=== PATIENT | female | born 1980 | race Caucasian/White ===

== ENCOUNTER 2016-03-31 23:16 | Outpatient (CLI) | payer OTHER, MEDICAID ==
[2016-03-31 23:59] LABS: APPEARANCE,URINE SLIGHTLY-CLOUDY; BILIRUBIN,URINE NEGATIVE (NEGATIVE); GLUCOSE, URINE NEGATIVE (NEGATIVE); KETONES,URINE NEGATIVE (NEGATIVE); LEUKOCYTE ESTERASE,URINE TRACE (NEGATIVE); NITRITE,URINE NEGATIVE (NEGATIVE); PROTEIN,URINE NEGATIVE (NEGATIVE); URINE SPECIFIC GRAVITY 1.026; UROBILINOGEN,URINE NEGATIVE mg/dL (<2.0)
[2016-04-01 00:17] LABS: URINE BARBITURATES SCREEN NEGATIVE; URINE METHADONE SCREEN NEGATIVE; URINE OPIATES LOW NEGATIVE; URINE PHENCYCLIDINE SCREEN NEGATIVE
--- NOTE | 2016-04-01 04:45 | Antepartum Discharge Summary ---
Antepartum DC Datetime Report Generated by CPN: 04/01/2016 04:45 DIET/ACTIVITY/RESTRICTIONS Diet: Regular (04/01/2016 02:53:Mili Calzada, RN) Activity: Normal Activity (04/01/2016 02:53:Mili Calzada, RN) TEACHING/INSTRUCTIONS/REFERRALS Instructions Given To: Patient (04/01/2016 02:53:Mili Calzada, RN) Instructions Understood: Patient Verbalized Understanding (04/01/2016 02:53:Mili Calzada, RN) Referrals: None (04/01/2016 02:53:Mili Calzada RN) Educational Materials- Other: kick counts and labor (04/01/2016 02:53:Mili Calzada RN) DISCHARGE INFORMATION Discharged AMA: No (04/01/2016 02:53:Mili Calzada RN) Discharge Date/Time: 04/01/2016 01:18 (04/01/2016 02:53:Mili Calzada RN) Discharged To: Home (04/01/2016 02:53:Mili Calzada RN) Discharge Provider Name: Dr Quach (04/01/2016 02:53:Mili Calzada RN) Accompanied By: Self (04/01/2016 02:53:Mili Calzada RN) Discharge Method: Ambulatory (04/01/2016 02:53:Mili Calzada RN) Condition: Stable (04/01/2016 02:53:Mili Calzada RN) FOLLOW UP INFORMATION Follow Up With: [facility] (04/01/2016 02:53:Mili Calzada RN) Follow Up On: As Scheduled (04/01/2016 02:53:Mili Calzada RN) Follow Up Phone Number: [facility] - (04/01/2016 02:53:Mili Calzada RN) Comments: Advised patient to return for bleeding like a period, leaking of fluid, decreased movement, and contractions. Patient without questions at this time. (04/01/2016 02:53:Mili Calzada RN)
--- NOTE | 2016-04-01 04:45 | L&D Flow Sheet ---
LD Flowsheet Datetime Report Generated by CPN: 04/01/2016 04:45 Datetime: 04/01/2016 01:09 NBP Sys/Sheila/Mean (mmHg): 122 (QS system process) : 62 (QS system process) : 85 (QS system process) Pulse: 91 (QS system process) LaborFlag: Antepartum (QS system process) Datetime: 04/01/2016 01:08 Vital Signs Stage of : Antepartum (Mili Calzada, RN) Respirations: 18 (Mili Calzada, RN) Temperature (F): 97.5 (Mili Calzada, RN) Temperature (C): 36.4 (QS system process) Uterine Activity Monitor Mode: External; Palpation (Mili Calzada, RN) Frequency (min): none (Mili Calzada, RN) Resting Tone (Palpate): Relaxed (Mili Calzada, RN) Assessment A Monitor Mode: External US (Mili Calzada, RN) FHR Baseline Rate : 140 (Mili Calzada, RN) FHR Baseline Changes: No Baseline Change (Mili Calzada, RN) Variability: Moderate 6-25 bpm (Mili Calzada, RN) Accelerations: 15X15 (Mili Calzada, RN) Pain Pain Scale: 0 (Mili Calzada, RN) Pain Presence: None/Denies (Mili Calzada, RN) Pain Type: N/A (Mili Calzada, RN) Communication Communication: RN at Bedside; RN Reviewed Strip (Mili Calzada, RN) LaborFlag: Antepartum (QS system process) Datetime: 04/01/2016 01:00 Vital Signs Stage of : Antepartum (Mili Calzada, RN) Uterine Activity Monitor Mode: External (Mili Calzada, RN) Frequency (min): none (Mili Calzada, RN) Resting Tone (Palpate): Relaxed (Mili Calzada, RN) Assessment A Monitor Mode: External US (Mili Calzada, RN) FHR Baseline Rate : 140 (Mili Calzada, RN) FHR Baseline Changes: No Baseline Change (Mili Calzada, RN) Variability: Moderate 6-25 bpm (Mili Calzada, RN) Accelerations: 10X10 (Mili Calzada, RN) Decelerations: None (Mili Calzada, RN) Communication Communication: RN at Bedside; RN Reviewed Strip (Mili Calzada, RN) Datetime: 04/01/2016 00:30 Vital Signs Stage of : Antepartum (Mili Calzada, RN) Respirations: 18 (Mili Calzada, RN) Uterine Activity Monitor Mode: External; Palpation (Mili Calzada, RN) Frequency (min): none (Mili Calzada, RN) Resting Tone (Palpate): Relaxed (Mili Calzada, RN) Assessment A Monitor Mode: External US (Mili Calzada, RN) FHR Baseline Rate : 140 (Mili Calzada, RN) FHR Baseline Changes: No Baseline Change (Mili Calzada, RN) Variability: Moderate 6-25 bpm (Mili Calzada, RN) Accelerations: 15X15 (Mili Calzada, RN) Comments: Utd if decels present during broken strip (Mili Calzada, RN) Pain Pain Scale: 0 (Mili Calzada, RN) Pain Presence: None/Denies (Mili Calzada, RN) Pain Type: N/A (Mili Calzada, RN) Communication Communication: RN at Bedside; RN Reviewed Strip (Mili Calzada, RN) LaborFlag: Antepartum (QS system process) Datetime: 04/01/2016 00:04 Communication Communication: Provider Orders Received (Mili Calzada, RN) Communication Comments: Report given to Quach re: patient fall, pain, FHR status, EGA, uterine activity. Orders received to monitor for contractionsfor one hour. If no contractions or cramping, D/C patient home, F/U PRN (Mili Calzada, RN) Datetime: 04/01/2016 00:00 Vital Signs Stage of : Antepartum (Mili Calzada, RN) Uterine Activity Monitor Mode: External; Palpation (Mili Calzada, RN) Frequency (min): none (Mili Calzada, RN) Resting Tone (Palpate): Relaxed (Mili Calzada, RN) Assessment A Monitor Mode: External US (Mili Calzada, RN) FHR Baseline Rate : 140 (Mili Calzada, RN) FHR Baseline Changes: No Baseline Change (Mili Calzada, RN) Variability: Moderate 6-25 bpm (Mili Calzada, RN) Accelerations: 10X10 (Mili Calzada, RN) Decelerations: None (Mili Calzada, RN) Communication Communication: RN at Bedside; RN Reviewed Strip (Mili Calzada, RN) Datetime: 03/31/2016 23:47 NBP Sys/Sheila/Mean (mmHg): 117 (QS system process) : 59 (QS system process) : 82 (QS system process) Pulse: 82 (QS system process) Datetime: 03/31/2016 23:44 Pain Pain Scale: 0 (Mili Calzada, RN) Pain Presence: None/Denies (Mili Calzada, RN) Pain Type: N/A (Mili Calzada, RN) Vaginal Exam Vaginal Bleeding: None (Mili Calzada, RN) Maternal Assessment Level of Consciousness: Fully Conscious (Mili Calzada, RN) DTR's/Clonus: DTRs 2+; No Clonus (Mili Calzada, RN) Headache: Denies (Mili Calzada, RN) Breath Sounds, Left: Clear and Equal (Mili Calzada, RN) Breath Sounds, Right: Clear and Equal (Mili Calzada, RN) Nausea/Vomiting: Denies (Mili Calzada, RN) RUQ Epigastric Pain: Denies (Mili Calzada, RN)
--- NOTE | 2016-04-01 04:45 | L&D Admission Assessment ---
LD ADM ASMT Datetime Report Generated by CPN: 04/01/2016 04:45 PATIENT ASSESSMENT Assessment Type: Triage (03/31/2016 23:44:Mili Calzada, RN) WEIGHT Weight (lb): 277 (03/31/2016 23:28:QS system process) Weight (kg): 125.9 (03/31/2016 23:28:QS system process) PAIN Pain Scale: 0 (04/01/2016 01:08:Mili Calzada, RN) Pain Scale: 0 (04/01/2016 00:30:Mili Calzada, RN) Pain Scale: 0 (03/31/2016 23:44:Mili Calzada, RN) Pain Presence: None/Denies (04/01/2016 01:08:Mili Calzada, RN) Pain Presence: None/Denies (04/01/2016 00:30:Mili Calzada, RN) Pain Presence: None/Denies (03/31/2016 23:44:Mili Calzada, RN) Pain Type: N/A (04/01/2016 01:08:Mili Calzada, RN) Pain Type: N/A (04/01/2016 00:30:Mili Calzada, RN) Pain Type: N/A (03/31/2016 23:44:Mili Calzada, RN) CONTRACTIONS Frequency (min): none (04/01/2016 01:08:Mili Calzada, RN) Frequency (min): none (04/01/2016 01:00:Mili Calzada, RN) Frequency (min): none (04/01/2016 00:30:Mili Calzada, RN) Frequency (min): none (04/01/2016 00:00:Mili Calzada, RN) Resting Tone Hideout: Relaxed (04/01/2016 01:08:Mili Calzada, RN) Resting Tone Hideout: Relaxed (04/01/2016 01:00:Mili Calzada, RN) Resting Tone Hideout: Relaxed (04/01/2016 00:30:Mili Calzada, RN) Resting Tone Hideout: Relaxed (04/01/2016 00:00:Mili Calzada, RN) NEURO Level of Consciousness: Fully Conscious (03/31/2016 23:44:Mili Calzada, RN) DTR's/Clonus: DTRs 2+; No Clonus (03/31/2016 23:44:Mili Calzada, RN) Headache: Denies (03/31/2016 23:44:Mili Calzada, RN) Dizziness: No (03/31/2016 23:44:Mili Calzada, RN) Blurred Vision: No (03/31/2016 23:44:Mili Calzada, RN) Extremity Numbness/Tingling : None (03/31/2016 23:44:Mili Calzada, RN) Extremity Movement: Full Range of Motion (03/31/2016 23:44:Mili Calzada, RN) CARDIOVASCULAR Heart Rhythm: Regular (03/31/2016 23:44:Mili Calzada, RN) Nailbeds: [place] (03/31/2016 23:44:Mili Calzada, RN) Capillary Refill: Less than 3 Seconds (03/31/2016 23:44:Mili Calzada, RN) Lower Extremities Edema: None (03/31/2016 23:44:Mili Calzada, RN) Lower Extremities Edema Degree: None (03/31/2016 23:44:Mili Calzada, RN) Upper Extremities Edema: None (03/31/2016 23:44:Miil Calzada, RN) Upper Extremities Edema Degree: None (03/31/2016 23:44:Mili Calzada, RN) Facial Edema: None (03/31/2016 23:44:Mili Calzada, RN) Dena's Sign Left Leg: Negative (03/31/2016 23:44:Mili Calzada, RN) Dena's Sign Right Leg: Negative (03/31/2016 23:44:Mili Calzada, RN) DVT RISK ASSESSMENT DVT Risk Age: Age less than 41 years (03/31/2016 23:44:Mili Calzada, RN) DVT Risk BMI: BMI 41 to 50 (03/31/2016 23:44:Mili Calzada, RN) DVT Risk Surgery: Laparoscopic Surgery (>60 minutes) (Annotations: gallbladder removed in 2013) (03/31/2016 23:44:Mili Calzada, RN) RESPIRATORY Respiratory Effort: Unlabored; Regular Rhythm; Equal Expansion (03/31/2016 23:44:Mili Calzada, RN) Breath Sounds, Left: Clear and Equal (03/31/2016 23:44:Mili Calzada, RN) Breath Sounds, Right: Clear and Equal (03/31/2016 23:44:Mili Calzada, RN) Cough Productivity: None (03/31/2016 23:44:Mili Calzada, RN) GASTROINTESTINAL Nausea/Vomiting: Denies (03/31/2016 23:44:Mili Calzada RN) RUQ Epigastric Pain: Denies (03/31/2016 23:44:Mili Calzada, RN) Bowel Patterns: Soft, Formed Stool (03/31/2016 23:44:Mili Calzada RN) Hemorrhoids: None (03/31/2016 23:44:Mili Calzada, RN) Diet Type: Regular diet (03/31/2016 23:44:Mili Calzada, RN) Last Meal: 03/31/2016 19:00 (03/31/2016 23:44:Mili Calzada, RN) GENITOURINARY Bladder: Nondistended (03/31/2016 23:44:Mili Calzada, RN) Frequency of Urination: No (03/31/2016 23:44:Mili Calzada, RN) Urination Burning: No (03/31/2016 23:44:Mili Calzada, RN) CVA Tenderness: No (03/31/2016 23:44:Mili Calzada, RN) INTEGUMENTARY Skin Color: Normal for Race (03/31/2016 23:44:Mili Calzada, RN) Skin Temperature: Warm (03/31/2016 23:44:Mili Calzada, RN) Skin Moisture: Dry (03/31/2016 23:44:Mili Calzada, RN) PHILLIP SKIN ASSESSMENT Phillip Scale Sensory Perception: No Impairment- Responds to verbal commands. Has no sensory deficit which would limit ability to feel or voice pain or discomfort (03/31/2016 23:44:Mili Calzada RN) Phillip Scale Moisture: Rarely Moist- Skin is usually dry. Linen only requires changing at routine intervals (03/31/2016 23:44:Mili Calzada RN) Phillip Scale Activity: Walks Frequently- Walks outside the room at least twice a day and inside room at least every 2 hours during the day. (03/31/2016 23:44:Mili Calzada RN) Phillip Scale Mobility: No Limitations- Makes major and frequent changes in position without assistance (03/31/2016 23:44:Mili Calzada RN) Phillip Scale Nutrition: Excellent- Eats most of every meal. Never refuses a meal. Usually eats a total of 4 or more servings of meat and dairy products. Occasionally eats between meals. Does not require supplementation (03/31/2016 23:44:Mili Calzada RN) Phillip Scale Friction and Shear: No Apparent Problem- Moves in bed and in chair independently and has sufficient muscle strength to lift up completely during move. Maintains good position in bed or chair at all times (03/31/2016 23:44:Mili Calzada RN) Phillip Scale Total: 23 (03/31/2016 23:44:QS system process) Phillip Scale Risk: No Risk of Pressure Ulcer Noted at this Time (03/31/2016 23:44:QS system process) SUPPORT Emotional State: Calm/Relaxed (03/31/2016 23:44:Mili Calzada, RN) SAFETY Call [place] Within Reach: Yes (03/31/2016 23:44:Mili Calzada, RN) Side Rails Up: Yes (03/31/2016 23:44:Mili Calzada, RN) Bed Wheels Locked: Yes (03/31/2016 23:44:Mili Calzada, RN) Arm Bands Present: Yes (03/31/2016 23:44:Mili Calzada, RN) Isolation: [place] (03/31/2016 23:44:Mili Calzada, RN) FALL SCREEN Fall Risk History of Falling: (0) No (03/31/2016 23:44:Mili Calzada RN) Fall Risk Secondary Diagnosis: (0) No (03/31/2016 23:44:Mili Calzada RN) Fall Risk Ambulatory Aid: (0) None/Bedrest/Wheelchair/Nurse Assist (03/31/2016 23:44:Mili Calzada RN) Fall Risk IV Therapy: (0) No (03/31/2016 23:44:Mili Calzada RN) Fall Risk Gait: (0) Normal/Bedrest/Immobile (03/31/2016 23:44:Mili Calzada RN) Fall Risk Mental Status: (0) Oriented to Own Ability (03/31/2016 23:44:Mili Calzada RN) Fall Risk Score: 0 (03/31/2016 23:44:QS system process) Fall Risk Score Definition: No Risk: No action required (03/31/2016 23:44:QS system process) RECENT TRAVEL/INFECTIOUS DISEASE Recent Exp Communicable Disease: No (03/31/2016 23:44:Mili Calzada RN) Cough or Fever: No (03/31/2016 23:44:Mili Calzada RN) Foreign Travel Past 10 Days: No (03/31/2016 23:44:Mili Calzada RN) Open Wounds or Sores: Yes (03/31/2016 23:44:Mili Calzada RN) Prior Antibiotic Resistance Tx: No (03/31/2016 23:44:Mili Calzada RN) Cultures Obtained: Not Applicable (03/31/2016 23:44:Mili Calzada RN) Isolation Initiated: No (03/31/2016 23:44:Mili Calzada RN) Pt/Family Education: Handwashing Hygiene (03/31/2016 23:44:Mili Calzada RN) BABY A FHR Baseline Rate (bpm) Baby A: 140 (04/01/2016 01:08:Mili Calzada RN) FHR Baseline Rate (bpm) Baby A: 140 (04/01/2016 01:00:Mili Calzada RN) FHR Baseline Rate (bpm) Baby A: 140 (04/01/2016 00:30:Mili Calzada RN) FHR Baseline Rate (bpm) Baby A: 140 (04/01/2016 00:00:Mili Calzada RN) Variability Baby A: Moderate 6-25 bpm (04/01/2016 01:08:Mili Calzada RN) Variability Baby A: Moderate 6-25 bpm (04/01/2016 01:00:Mili Calzada RN) Variability Baby A: Moderate 6-25 bpm (04/01/2016 00:30:Mili Calzada RN) Variability Baby A: Moderate 6-25 bpm (04/01/2016 00:00:Mili Calzada RN) Accelerations Baby A: 15X15 (04/01/2016 01:08:Mili Calzada RN) Accelerations Baby A: 10X10 (04/01/2016 01:00:Mili Calzada RN) Accelerations Baby A: 15X15 (04/01/2016 00:30:Mili Calzada RN) Accelerations Baby A: 10X10 (04/01/2016 00:00:Mili Calzada RN) Decelerations Baby A: None (04/01/2016 01:00:Mili Calzada RN) Decelerations Baby A: None (04/01/2016 00:00:Mili Calzada RN)
--- NOTE | 2016-04-01 04:45 | L&D Current Admission ---
Current Admit Datetime Report Generated by CPN: 04/01/2016 04:45 ADMISSION INFORMATION Chief Complaint: Trauma or Fall (03/31/2016 23:44:Mili Zheng, LISA)
--- NOTE | 2016-04-01 04:45 | L&D General Admission ---
General Admit Datetime Report Generated by CPN: 04/01/2016 04:45 INFORMATION Patient Age: 35 (03/31/2016 23:17:QS system process) EDC: 06/20/2016 00:00 (03/31/2016 23:23:Patricio Molina RN) : 1 (03/31/2016 23:23:Patricio Molina RN) Para: 0 (04/01/2016 02:53:Mili Calzada RN) Para: 0 (03/31/2016 23:23:Mili Calzada RN) Term: 0 (03/31/2016 23:23:Mili Calzada RN) : 0 (03/31/2016 23:23:Mili Calzada RN) Spontaneous Abortions: 0 (03/31/2016 23:23:Mili Calzada RN) Induced Abortions: 0 (03/31/2016 23:23:Mili Calzada RN) Livin (03/31/2016 23:23:Mili Calzada RN) Cesareans: 0 (03/31/2016 23:23:Mili Calzada RN) VBACs: 0 (03/31/2016 23:23:Mili Calzada RN) Ectopic: 0 (03/31/2016 23:23:Mili Calzada RN) Multiple Births: 0 (03/31/2016 23:23:Mili Calzada RN) Baby, Number in Womb: 1 (04/01/2016 02:53:Mili Calzada RN) Baby, Number in Womb: 1 (03/31/2016 23:23:Mili Calzada RN) CARE Primary Android Platform Developer: [facility] (03/31/2016 23:23:Mili Calzada RN) Adequate Care: Yes (03/31/2016 23:23:Mili Calzada RN) Height (in): 64 (03/31/2016 23:28:QS system process) ALLERGIES Medication Allergy: No (03/31/2016 23:23:Mili Calzada RN) Medication Allergies: No Known Allergies (03/31/2016) (03/31/2016 23:27:QS system process) Latex Allergy: No Latex Allergies (03/31/2016 23:23:Mili Calzada RN) Food Allergies: none (03/31/2016 23:23:Mili Calzada RN) Environmental Allergies: none (03/31/2016 23:23:Mili Calzada RN) COMMUNICATION Primary Language: Grenadian (03/31/2016 23:23:Mili Calzada RN) Medical Tx Preferred Language: Grenadian (03/31/2016 23:23:Mili Calzada, RN) DEMOGRAPHICS Address: [address] [place] [id number] (03/31/2016 23:17:QS system process) Zipcode: [address] (03/31/2016 23:17:QS system process) Home (03/31/2016 23:17:QS system process) Work (03/31/2016 23:17:QS system process) N: [phone] (03/31/2016 23:17:QS system process) Next of Kin Name: CALIXTO GAUTHIER (03/31/2016 23:17:QS system process) Next of Kin (03/31/2016 23:17:QS system process) Next of Kin Relationship: OR (03/31/2016 23:17:QS system process) Date of : 1980 (03/31/2016 23:17:QS system process) Marital Status: Single (03/31/2016 23:17:QS system process) Sex: Female (03/31/2016 23:17:QS system process) Race: (03/31/2016 23:17:QS system process) Ethnicity: Non- or (03/31/2016 23:17:QS system process) Temple: None (03/31/2016 23:17:QS system process) DRUG AND ALCOHOL USE Alcohol: No (03/31/2016 23:23:Mili Calzada RN) Cigarettes: Former Smoker. [id number] (03/31/2016 23:23:Mili Calzada RN) Marijuana: No (03/31/2016 23:23:Mili Calzada RN) Cocaine: No (03/31/2016 23:23:Mili Calzada RN) Other Illicit Drugs: No (03/31/2016 23:23:Mili Calzada RN) VACCINE HISTORY Influenza Vaccine: Yes (03/31/2016 23:23:Mili Calzada RN) Pneumococcal Vaccine: No (03/31/2016 23:23:Mili Calzada RN) Tetanus Vaccine: No (03/31/2016 23:23:Mili Calzada RN) Tdap Vaccine: No (03/31/2016 23:23:Mili Calzada RN) Hepatitis B Vaccine: Yes (03/31/2016 23:23:Mili Calzada RN) Feeding Preference: Breast (03/31/2016 23:23:Mili Calzada RN) Circumcision: N/A (03/31/2016 23:23:Mili Calzada RN) Classes Attended: No (03/31/2016 23:23:Mili Calzada RN) Tubal Ligation: No (03/31/2016 23:23:Mili Calzada RN) Tubal Authorization Signed: N/A (03/31/2016 23:23:Mili Calzada RN) Consent: N/A (03/31/2016 23:23:Mili Calzada RN) Consent Signed: N/A (03/31/2016 23:23:Mili Calzada RN) Cultural/Spritual Practice: No (03/31/2016 23:23:Mili Calzada RN) Spir/Cult Dietary Needs: No (03/31/2016 23:23:Mili Calzada RN) LIVING SITUATION/DISCHARGE PLAN Living Arrangements: House (03/31/2016 23:23:Mili Calzada RN) Adequate Access to:: Electric; Heat; Refrigeration; Plumbing/Running water; Phone; Transportation (03/31/2016 23:23:Mili Calzada RN) WIC Program: Yes (03/31/2016 23:23:Mili Calzada RN) Currently Using Commun Resources: No (03/31/2016 23:23:Mili Calzada RN) Outside Agency/Ends Breakage Clerk: No (03/31/2016 23:23:Mili Calzada RN) Adoption Requested: No (03/31/2016 23:23:Mili Calzada RN) Pt Contact w/infant Post : N/A (03/31/2016 23:23:Mili Calzada RN) LABS RPR/VDRL: Nonreactive (03/31/2016 23:23:Patricio Molina RN) HIV Exposure Test: Negative (03/31/2016 23:23:Patricio Molina RN) OB/PREVIOUS HISTORY Current Procedures: Ultrasound; NST (03/31/2016 23:23:Mili Calzada RN) History of Previous : No (03/31/2016 23:23:Mili Calzada RN) History of Gestational Diabetes: No (03/31/2016 23:23:Mili Calzada RN) History of PIH: No (03/31/2016 23:23:Mili Calzada RN) History of Incompetent Cervix: No (03/31/2016 23:23:Mili Calzada RN) History of Placenta Previa/Abrup: No (03/31/2016 23:23:Mili Calzada RN) History of Macrosomia: No (03/31/2016 23:23:Mili Calzada RN) History of IUGR: No (03/31/2016 23:23:Mili Calzada RN) History of Hemorrhage: No (03/31/2016 23:23:Mili Calzada RN) History of Loss/Stillborn: No (03/31/2016 23:23:Mili Calzada RN) History of : No (03/31/2016 23:23:Mili Calzada RN) History of D (Rh) Sensitization: No (03/31/2016 23:23:Mili Calzada RN) History Recurrent Loss/Stillborn: No (03/31/2016 23:23:Mili Calzada RN) History Depression/PP Depression: Yes (03/31/2016 23:23:Mili Calzada RN) History of Uterine Anomaly/JENNIFER: No (03/31/2016 23:23:Mili Calzada RN) History of Infertility: No (03/31/2016 23:23:Mili Calzada RN) History of ART Treatment: No (03/31/2016 23:23:Mili Calzada RN) History of JENNIFER: No (03/31/2016 23:23:Mili Calzada RN) Comments Obstetrical History: G1: Current (03/31/2016 23:23:Mili Calzada RN) MEDICAL HISTORY Med Hx Diabetes: No (03/31/2016 23:23:Mili Calzada RN) Med Hx Hypertension: No (03/31/2016 23:23:Mili Calzada RN) Med Hx Heart Disease: No (03/31/2016 23:23:Mili Calzada RN) Med Hx Autoimmune Disorder: No (03/31/2016 23:23:Mili Calzada RN) Med Hx Kidney Disease/UTI: No (03/31/2016 23:23:Mili Calzada RN) Med Hx Neurologic/Epilepsy: No (03/31/2016 23:23:Mili Calzada RN) Med Hx Psychiatric Disorders: No (03/31/2016 23:23:Mili Calzada RN) Med Hx Hepatitis/Liver Disease: No (03/31/2016 23:23:Mili Calzada RN) Med Hx Varicosities/Phlebitis: No (03/31/2016 23:23:Mili Calzada RN) Med Hx Thyroid Dysfunction: No (03/31/2016 23:23:Mili Calzada RN) Med Hx Trauma/Violence: No (03/31/2016 23:23:Mili Calzada RN) Med Hx Blood Transfusion: No (03/31/2016 23:23:Mili Calzada RN) Med Hx Pulmonary (Asthma,TB): No (03/31/2016 23:23:Mili Calzada RN) Med Hx Breast: No (03/31/2016 23:23:Mili Calzada RN) Med Hx WAXER Surgery: No (03/31/2016 23:23:Mili Calzada RN) Med Hx Hospitalization/Surgery: No (03/31/2016 23:23:Mili Calzada RN) Med Hx Anesthetic Complications: No (03/31/2016 23:23:Mili Calzada RN) Med Hx Abnormal Pap Smear: No (03/31/2016 23:23:Mili Calzada RN) Other Medical Diseases: No (03/31/2016 23:23:Mili Calzada RN) Med Hx Significant Family Hx: No (03/31/2016 23:23:Mili Calzada RN) Details of Med/Surg Hx: quit depression medication when moved to [place] (04/2015) (03/31/2016 23:23:Mili Calzada RN) INFECTIOUS HISTORY Inf Hx Gonorrhea: No (03/31/2016 23:23:Mili Calzada RN) Inf Hx Chlamydia: No (03/31/2016 23:23:Mili Calzada RN) Inf Hx Syphilis: No (03/31/2016 23:23:Mili Calzada RN) Inf Hx HIV/AIDS: No (03/31/2016 23:23:Mili Calzada RN) Inf Hx Human Papilloma Virus: No (03/31/2016 23:23:Mili Calzada RN) Inf Hx Pt/Partner Genital Herpes: No (03/31/2016 23:23:Mili Calzada RN) Inf Hx Tuberculosis/Exposure: No (03/31/2016 23:23:Mili Calzada RN) Inf Hx Hepatitis B,C: No (03/31/2016 23:23:Mili Calzada RN) Inf Hx Rash or Viral Illness: No (03/31/2016 23:23:Mili Calzada RN) GENETIC HISTORY Gen Hx Age >=35 at CATHY: No (03/31/2016 23:23:Mili Calzada RN) Gen Hx Thalassemia: No (03/31/2016 23:23:Mili Calzada RN) Gen Hx Congenital Heart Defect: No (03/31/2016 23:23:Mili Calzada RN) Gen Hx Neural Tube Defect: No (03/31/2016 23:23:Mili Calzada RN) Gen Hx Down's Syndrome: No (03/31/2016 23:23:Mili Calzada RN) Gen Hx Jabier-Sachs: No (03/31/2016 23:23:Mili Calzada RN) Gen Hx Melissa: No (03/31/2016 23:23:Mili Calzada RN) Gen Hx Familial Dysautonomia: No (03/31/2016 23:23:Mili Calzada RN) Gen Hx Sickle Cell Disease/Trait: No (03/31/2016 23:23:Mili Calzada RN) Gen Hx Hemophilia/Blood Disorder: No (03/31/2016 23:23:Mili Calzada RN) Gen Hx Muscular Dystrophy: No (03/31/2016 23:23:Mili Calzada RN) Gen Hx Cystic Fibrosis: No (03/31/2016 23:23:Mili Calzada RN) Gen Hx Huntingtons Chorea: No (03/31/2016 23:23:Mili Calzada RN) Gen Hx Mental Retardation/Autism: No (03/31/2016 23:23:Mili Calzada RN) Gen Hx Tested for Fragile X: No (03/31/2016 23:23:Mili Calzada RN) Gen Hx Other Inher/Chromosomal: No (03/31/2016 23:23:Mili Calzada RN) Gen Hx Maternal Metabolic DO: No (03/31/2016 23:23:Mili Calzada RN) Gen Hx Pt Father or FOB Defect: No (03/31/2016 23:23:Mili Calzada RN) Gen Hx Other Genetic History: No (03/31/2016 23:23:Mili Calzada RN) Gen Hx Drugs/Meds since LMP: No (03/31/2016 23:23:Mili Calzada RN)
--- NOTE | 2016-04-01 04:45 | L&D Discharge Summary ---
OB Discharge Summary Datetime Report Generated by CPN: 04/01/2016 04:45 DISCHARGE DIAGNOSIS Diagnosis/Symptoms: Trauma/Fall Diagnoses/Symptoms Other: no contractions, FHR appropriate for gestational age Gestation: 28.3 Number of Babies in Womb: 1 Parity: 0 DIET/ACTIVITY/RESTRICTIONS Diet: Regular Activity: Normal Activity TEACHING/INSTRUCTIONS/REFERRALS Instructions Given To: Patient Instructions Understood: Patient Verbalized Understanding Referrals: None Educational Materials- Other: kick counts and labor DISCHARGE INFORMATION Discharged AMA: No Discharge Date/Time: 04/01/2016 01:18 Discharged To: Home Discharge Provider Name: Dr Quach Accompanied By: Self Discharge Method: Ambulatory Condition: Stable FOLLOW UP INFORMATION Follow Up With: [email or web address] Follow Up On: As Scheduled Follow Up Phone Number: [facility] - Comments: Advised patient to return for bleeding like a period, leaking of fluid, decreased movement, and contractions. Patient without questions at this time.
== END 2016-04-01 01:18 | disposition home or self-care (01) ==
LOC: LC 23:16
PROVIDERS: ATTEND Obstetrics & Gynecology
PROC: 4A1HXCZ Monitoring of Products of Conception, Cardiac Rate, External Approach (ICD-10-PCS; principal; 2016-03-31)
DX: Z36 Encounter for antenatal screening of mother (principal); W19.XXXA Unspecified fall, initial encounter; Z3A.28 28 weeks gestation of pregnancy
CPT/HCPCS: 80307; 81001

== ENCOUNTER 2016-06-15 05:10 | Inpatient (IN) | payer MEDICAID, OTHER ==
[2016-06-14 10:36] LABS: APPEARANCE,URINE CLOUDY; BILIRUBIN,URINE NEGATIVE (NEGATIVE); GLUCOSE, URINE NEGATIVE (NEGATIVE); KETONES,URINE NEGATIVE (NEGATIVE); LEUKOCYTE ESTERASE,URINE LARGE (NEGATIVE); NITRITE,URINE NEGATIVE (NEGATIVE); PROTEIN,URINE NEGATIVE (NEGATIVE); URINE SPECIFIC GRAVITY 1.017; UROBILINOGEN,URINE NEGATIVE mg/dL (<2.0)
[2016-06-14 10:58] LABS: ABSOLUTE LYMPHOCYTES (AUTO) 1.6 10^3/uL (0.5-4.7); ABSOLUTE MONOCYTES (AUTO) 0.6 10^3/uL (0.1-1.4); ABSOLUTE NEUT (AUTO) 8.7 10^3/uL (1.7-8.2); BASOPHILS % (AUTO) 0.2 % (0-2); EOSINOPHILS % (AUTO) 0.4 % (0-6); HEMATOCRIT 39.5 % (36.0-47.0); HEMOGLOBIN 13.7 g/dL (12.0-15.5); HGB HCT DIFFERENCE 1.6; LYMPHOCYTES % (AUTO) 15.1 % (13-45); MEAN CORPUSCULAR HEMOGLOBIN 29.5 pg (27.0-33.4); MEAN CORPUSCULAR HGB CONC 34.8 g/dL (32.0-36.0); MEAN CORPUSCULAR VOLUME 85 fl (80-97); RED BLOOD COUNT 4.66 10^6/uL (3.72-5.28); RED CELL DISTRIBUTION WIDTH 16.5 % (11.5-14.0); SEGMENTED NEUTROPHILS % (AUTO) 79.3 % (42-78); WHITE BLOOD COUNT 10.9 10^3/uL (4.0-10.5)
[2016-06-14 11:09] LABS: URINE BARBITURATES SCREEN NEGATIVE; URINE METHADONE SCREEN NEGATIVE; URINE OPIATES LOW NEGATIVE; URINE PHENCYCLIDINE SCREEN NEGATIVE
[~2016-06-15 05:10] MED LIST: CEFAZOLIN 1 GM/D5W RTU 1 GM/50 ML RTUPB IV PRN; LACTATED RINGERS 1000 ML IV PRN; LIDOCAINE 0.5% INJ-PF (5 MG/ML) 50 ML SDV SUBCUT PRN; RINGERS SOLUTION,LACTATED 1,000 ML IV PRN
[2016-06-15] MEDS ORDERED: MIDAZOLAM 2 MG/2 ML INJ ONE (08:00)
[2016-06-15] MEDS ORDERED: EPHEDRINE SULFATE INJ 50 MG/1 ML AMPULE ONE (08:00)
[2016-06-15] MEDS ORDERED: FENTANYL CITRATE INJ/PF 100 MCG/2 ML AMPUL ONE (08:00)
[2016-06-15] MEDS ORDERED: FENTANYL CITRATE INJ/PF 250 MCG/5 ML AMPULE ONE (08:00)
[2016-06-15] MEDS ORDERED: OXYTOCIN/NORMAL SALINE 20 UNIT/1,000 ML RTUINJ ONE (08:00)
[2016-06-15] MEDS ORDERED: OXYTOCIN 10 UNIT/ML VIAL ONE (08:00)
[2016-06-15] MEDS ORDERED: ONDANSETRON HCL INJ/PF 4 MG/2 ML SDV ONE (08:01)
[2016-06-15] MEDS ORDERED: PROMETHAZINE HCL INJ 25 MG/1 ML VIAL IV PRN ×3 (08:12→09:53)
[2016-06-15] MEDS ORDERED: MORPHINE SULFATE 10 MG/ML INJ IV PRN ×2 (08:12→09:53)
[2016-06-15] MEDS ORDERED: MEPERIDINE HCL/PF INJ 25 MG/1 ML DISP.SYRIN IV PRN (08:12)
[2016-06-15] MEDS ORDERED: FENTANYL CITRATE INJ/PF 100 MCG/2 ML AMPUL IV PRN ×3 (08:12)
[2016-06-15] MEDS ORDERED: DIPHENHYDRAMINE HCL 50 MG/ML VIAL IV PRN (08:12)
[2016-06-15] MEDS ORDERED: NALBUPHINE HCL INJ 10 MG/1 ML AMPULE IM ONE (08:13)
[2016-06-15] MEDS ORDERED: ACETAMINOPHEN 100 ML IV PRN (09:53)
[2016-06-15] MEDS ORDERED: OXYTOCIN/NORMAL SALINE 1,000 ML IV PRN (09:53)
[2016-06-15] MEDS ORDERED: SIMETHICONE 80 MG TAB.CHEW PO PRN (09:53)
[2016-06-15] MEDS ORDERED: MEASLES,MUMPS&RUBELLA VACC/PF 0.5 ML VIAL SUBCUT PRN (09:53)
[2016-06-15] MEDS ORDERED: OXYCODONE-ACETAMINOPHEN 5-325 MG TABLET PO PRN (09:53)
[2016-06-15] MEDS ORDERED: DIPH/PERTUSS(ACELL)/TETANUS VAC/PF 0.5 ML SYR (>=10YO) IM PRN (09:53)
[2016-06-15] MEDS ORDERED: ACETAMINOPHEN 325 MG TABLET PO PRN (09:53)
--- NOTE | 2016-06-15 10:11 | OPERATIVE REPORT E ---
Operative Report NAME: EDINSON GAUTHIER : 1980 AGE: 35Y DATE OF SURGERY: 06/15/2016 ROOM: 219 PREOPERATIVE DIAGNOSIS: Intrauterine at 39 weeks, breech presentation. POSTOPERATIVE DIAGNOSIS: Intrauterine at 39 weeks, breech presentation. OPERATION: Low transverse hysterotomy section. SURGEON: CHAU MORENO M.D. ANESTHESIA: PRINCE PRICE M.D., spinal ESTIMATED BLOOD LOSS: 600 mL FINDINGS: A female in adelina breech presentation, Apgars 9-9. COMPLICATIONS: None. PROCEDURE: The patient was taken to the operating room, prepped and draped in normal sterile fashion in the supine position with a leftward tilt. A transverse skin incision was made with a scalpel and carried through to the underlying layer of fascia with the same scalpel. Fascia was incised in the midline and extended laterally with Mayos. The fascia was then dissected from the rectus muscles sharply with Patti and the rectus muscle was divided. The peritoneal cavity was entered bluntly with surgeon finger pressure with good visualization of the bladder and the uterus. The bladder blade was inserted. The hysterotomy was nicked with a scalpel and extended laterally with surgeon finger pressure. The infant's buttocks were then delivered. We then delivered the infant to the level of the scapula and swept the arms out, wrapped the infant in a blue towel and flexed the head to facilitate delivery of the head with pressure on the fundus of the uterus. The mouth and nose were suctioned with a suction bulb and the cord was clamped and cut. The was handed off to waiting pediatricians. Cord blood was collected and the placenta was removed manually. The uterus was exteriorized and cleared of clots and debris. The hysterotomy was closed with 0 Monocryl in a running locked fashion. The second layer of the same suture was used to imbricate to ensure hemostasis. Two further [id number] sutures were placed on the hysterotomy for hemostasis as well. The uterus was then returned to the abdomen. The peritoneal cavity was cleared of clots and debris. The rectus muscle and peritoneum were reapproximated with 2-0 Chromic mattress stitch. The fascia was closed with 0 Vicryl. The subcutaneous layer was closed with 2 layers of plain catgut. The skin was then closed with 4-0 Vicryl. The patient tolerated the procedure well. Sponge, lap, and needle counts were correct x2. The patient was taken to recovery in stable condition. DICTATING PHYSICIAN: CHAU MORENO M.D. [id number] PHY#: [id number] ID: [id number] JOB#: [id number] ACCT: [id number] cc:CHAU MORENO M.D. >
[2016-06-15] MEDS ORDERED: NALBUPHINE HCL INJ 10 MG/1 ML AMPULE ONE (10:15)
[2016-06-15] MEDS: DOCUSATE SODIUM 100 MG CAPSULE PO SCH ×2 (12:17→17:19)
[2016-06-15] MEDS: PRENATAL VITAMIN W-O CA NO5/FE FUMARATE/FA CAPSULE PO SCH (12:18)
[2016-06-15] MEDS: OXYCODONE-ACETAMINOPHEN 5-325 MG TABLET PO PRN ×2 (13:15→19:52)
[2016-06-15] MEDS: KETOROLAC TROMETHAMINE INJ/PF 30 MG/1 ML SDV IV SCH (17:20)
[2016-06-16] MEDS: OXYCODONE-ACETAMINOPHEN 5-325 MG TABLET PO PRN ×3 (00:28→16:13)
[2016-06-16] MEDS: KETOROLAC TROMETHAMINE INJ/PF 30 MG/1 ML SDV IV SCH ×2 (01:57→09:37)
[2016-06-16 06:44] LABS: MEAN CORPUSCULAR VOLUME 87 fl (80-97)
[2016-06-16 07:03] LABS: HEMATOCRIT 34.5 % (36.0-47.0); HGB HCT DIFFERENCE -0.3; MEAN CORPUSCULAR HEMOGLOBIN 28.6 pg (27.0-33.4); RED BLOOD COUNT 3.97 10^6/uL (3.72-5.28); RED CELL DISTRIBUTION WIDTH 16.7 % (11.5-14.0); WHITE BLOOD COUNT 14.5 10^3/uL (4.0-10.5)
[2016-06-16 07:08] LABS: HEMOGLOBIN 11.4 g/dL (12.0-15.5)
--- NOTE | 2016-06-16 08:51 | PDOC PROGRESS REPORT ---
Subjective-OB Subjective: Post Delivery Day: 35 year old. Denies any needs at this time Physical Exam (OB) Vital Signs: Temp Pulse Resp BP Pulse Ox 98.1 F 93 16 118/61 99 06/16/16 07:34 06/16/16 07:34 06/16/16 07:34 06/16/16 07:34 06/16/16 07:34 Intake & Output 06/15/16 06/16/16 06/17/16 06:59 06:59 06:59 Intake Total 0 Output Total 1410 Balance -1410 Weight 130.8 kg - Dressing Removed: No Incision: Dressing, Draining Note: Opsite not sealed well-saturated with blood. Will have this replaced - Lochia Lochia Amount: Scant < 10 ml Lochia Color: Rubra/Red - Abdomen Description: Tender, Soft Hernia Present: No Bowel Sounds: Normoactive Flatus Presence: Absent Stool: No Fundal Description: Firm, Midline Fundal Height: u/u - u/2 Objective-Diagnostic Laboratory: 06/16/16 06:28 06/16/16 06:28 WBC 14.5 H RBC 3.97 Hgb 11.4 L D Hct 34.5 L MCV 87 MCH 28.6 MCHC 33.0 RDW 16.7 H Plt Count 231
[2016-06-16] MEDS: PRENATAL VITAMIN W-O CA NO5/FE FUMARATE/FA CAPSULE PO SCH (09:37)
[2016-06-16] MEDS: DOCUSATE SODIUM 100 MG CAPSULE PO SCH ×2 (09:38→17:19)
[2016-06-16] MEDS: IBUPROFEN 800 MG TABLET PO SCH ×2 (17:18→23:14)
[2016-06-17] MEDS: IBUPROFEN 800 MG TABLET PO SCH ×2 (05:31→12:19)
--- NOTE | 2016-06-17 09:01 | PDOC PROGRESS REPORT ---
Subjective-OB Subjective: Post Delivery Day: 35 year old. Denies any needs at this time. Ready to go home. Physical Exam (OB) Vital Signs: Temp Pulse Resp BP Pulse Ox 97.8 F 95 16 123/66 100 06/17/16 07:39 06/17/16 07:39 06/17/16 07:39 06/17/16 07:39 06/17/16 07:39 Intake & Output 06/16/16 06/17/16 06/18/16 06:59 06:59 06:59 Intake Total 0 600 Output Total 1410 Balance -1410 600 - Dressing Removed: No - op site Incision: Dressing - Lochia Lochia Amount: Small 10-25 ml Lochia Color: Rubra/Red - Abdomen Description: Soft, Round Hernia Present: No Bowel Sounds: Normoactive Flatus Presence: Present Stool: No Fundal Description: Firm, Midline Fundal Height: u/u - u/2 Objective-Diagnostic Laboratory: 06/16/16 06:28
--- NOTE | 2016-06-17 09:07 | PDOC DISCHARGE SUMMARY ---
Final Diagnosis Discharge Date: 06/17/16 - Final Diagnosis (1) Breech presentation Is this a current diagnosis for this admission?: Yes (2) Delivery by elective caesarean section Is this a current diagnosis for this admission?: Yes (3) Depression with anxiety Is this a current diagnosis for this admission?: Yes (4) Obesity Is this a current diagnosis for this admission?: Yes (5) Positive GBS test Is this a current diagnosis for this admission?: Yes (6) Is this a current diagnosis for this admission?: Yes Discharge Data - Discharge Medication Home Medications: Vit/Iron Fumarate/FA [ Tablet] 1 each PO DAILY 03/31/16 Docusate Sodium [Colace 100 mg Capsule] 100 mg PO BID #30 capsule 06/17/16 Ibuprofen [Motrin 800 mg Tablet] 800 mg PO Q6 #30 tablet 06/17/16 Oxycodone HCl/Acetaminophen [Percocet 5-325 mg Tablet] 1 tab PO Q4HP PRN #20 tablet 06/17/16 Gestational Age: 39.1 wks Reason(s) for Admission: Ceasarean Section-Primary Procedures: Ultrasound Intrapartum Procedure(s): : Low Cervical, Transverse - Data Baby 1 Female at 1 minute: 7 at 5 minutes: 9 Weight: 3175 kg Home with Mother: Yes Complications: No - Diagnosis Test Laboratory: Temp Pulse Resp BP Pulse Ox 97.8 F 95 16 123/66 100 06/17/16 07:39 06/17/16 07:39 06/17/16 07:39 06/17/16 07:39 06/17/16 07:39 06/14/16 06/14/16 06/16/16 09:25 10:20 06:28 RBC 4.66 3.97 Hgb 13.7 11.4 L D Hct 39.5 34.5 L Urine Opiates Screen NEGATIVE - Discharge information/Instructions Discharge Activity: Activity As Tolerated, Balance Activity w/Rest, No Lifting Over 10 Pounds, No Lifting/Push/Pulling, Pelvic Rest, Slowly Increase Activity, No tub bath Discharge Diet: Regular Disposition: HOME, SELF-CARE Follow up with: [facility] in: 1, Weeks
[2016-06-17 11:20] VITALS: BP 128/65
== END 2016-06-17 15:55 | disposition home or self-care (01) | DRG 765 ==
LOC: 2S 05:10
PROVIDERS: ADMIT Obstetrics & Gynecology; ATTEND Obstetrics & Gynecology
PROC: 4A1HXCZ Monitoring of Products of Conception, Cardiac Rate, External Approach (ICD-10-PCS; 2016-06-15)
PROC: 10D00Z1 Extraction of Products of Conception, Low, Open Approach (ICD-10-PCS; principal; 2016-06-15 08:15)
PROC: 3E0234Z Introduction of Serum, Toxoid and Vaccine into Muscle, Percutaneous Approach (ICD-10-PCS; 2016-06-17)
PROC: 3E0234Z Introduction of Serum, Toxoid and Vaccine into Muscle, Percutaneous Approach (ICD-10-PCS; 2016-06-17)
DX: O32.1XX0 Maternal care for breech presentation, not applicable or unspecified (principal); Z68.42 Body mass index [BMI] 45.0-49.9, adult; O99.344 Other mental disorders complicating childbirth; F32.9 Major depressive disorder, single episode, unspecified; F41.9 Anxiety disorder, unspecified; O99.824 Streptococcus B carrier state complicating childbirth; O99.214 Obesity complicating childbirth; E66.9 Obesity, unspecified; Z23 Encounter for immunization; Z83.3 Family history of diabetes mellitus; Z80.9 Family history of malignant neoplasm, unspecified; Z3A.39 39 weeks gestation of pregnancy; Z37.0 Single live birth
CPT/HCPCS: 1961; 36415; 59025; 80307; 81001; 85025; 85027; 86850; 86900; 86901; 90707; 90715; 94799; J1885; J2250; J2270; J2300; J2405; J2590; J3010; J3490; J7120